=== PATIENT | female | born 1955 | race Caucasian/White ===

== ENCOUNTER → 2018-10-25 | Outpatient (CLI) | payer OTHER ==
[2018-10-25 12:03] LABS: Anion Gap 4 mmol/L (6-16); Blood Urea Nitrogen 21 mg/dL (8-24); Bun/Creatinine Ratio 36.3 (12.0-20.0); CO2, Blood 44 mmol/L (21-32); Chloride, Blood 92 mmol/L (98-108); Creatinine, Blood 0.58 mg/dL (0.40-1.00); Glomerular Filtration Rate >60 (60-); Glucose, Blood 100 mg/dL (70-99); Potassium, Blood 3.6 mmol/L (3.5-5.5); Sodium, Blood 140 mmol/L (136-145)
== END | disposition home or self-care (01) ==
LOC: LAB RH 11:41 → EDSTATUS 14:36
DX: J96.11 Chronic respiratory failure with hypoxia (principal)
CPT/HCPCS: 80048

== ENCOUNTER → 2018-10-27 | Outpatient (CLI) | payer OTHER ==
[2018-10-27 14:33] LABS: Anion Gap 3 mmol/L (6-16); Blood Urea Nitrogen 29 mg/dL (8-24); Bun/Creatinine Ratio 41.1 (12.0-20.0); CO2, Blood 40 mmol/L (21-32); Calcium, Blood 8.7 mg/dL (8.5-10.1); Chloride, Blood 95 mmol/L (98-108); Creatinine, Blood 0.71 mg/dL (0.40-1.00); Glomerular Filtration Rate >60 (60-); Glucose, Blood 113 mg/dL (70-99); Potassium, Blood 3.7 mmol/L (3.5-5.5); Sodium, Blood 138 mmol/L (136-145)
== END | disposition home or self-care (01) ==
LOC: LAB RH 14:12 → EDSTATUS 14:38
DX: J96.11 Chronic respiratory failure with hypoxia (principal)
CPT/HCPCS: 80048

== ENCOUNTER → 2019-01-23 | Outpatient (CLI) | payer OTHER | END | disposition home or self-care (01) | LOC: PLD 12:58 → LAB SHORT 12:58 | DX: B35.1 Tinea unguium (principal); L60.2 Onychogryphosis | CPT/HCPCS: 88305; 88312 ==

== ENCOUNTER 2019-06-21 18:39 | Emergency (ER) | payer MEDICARE, OTHER ==
[~2019-06-21] VITALS: Ht 177.8 cm; Wt 59.0 kg
[2019-06-21] MEDS ORDERED: Aspir 8181 MG PO (18:53)
[2019-06-21] MEDS ORDERED: FAMO40 PO (18:53)
[2019-06-21] MEDS ORDERED: THERA-D2000 UNIT PO (18:53)
[2019-06-21] MEDS ORDERED: FURO20 PO (18:54)
[2019-06-21] MEDS ORDERED: ACET325 PO (18:54)
[2019-06-21] MEDS ORDERED: MILK OF MA400 MG/5 M PO (18:55)
== END 2019-06-21 20:54 | disposition home or self-care (01) ==
LOC: ER 18:39
DX: M79.18 Myalgia, other site (principal); K59.00 Constipation, unspecified; J44.9 Chronic obstructive pulmonary disease, unspecified; I50.9 Heart failure, unspecified; Z87.891 Personal history of nicotine dependence; Z79.82 Long term (current) use of aspirin; Z88.0 Allergy status to penicillin; Z79.899 Other long term (current) drug therapy
CPT/HCPCS: 72170; 96372; 99283-25; J1885

== ENCOUNTER → 2021-05-01 | Outpatient (CLI) | payer OTHER ==
[~2021-05-01] MED LIST: ACET325 PO; Aspir 8181 MG PO; FAMO40 PO; FURO20 PO; MILK OF MA400 MG/5 M PO; THERA-D2000 UNIT PO
[2021-05-01 13:44] LABS: BASOPHILS ABSOLUTE AUTO 0.05 K/mm3 (0.00-0.23); BASOPHILS PERCENT AUTO 1 % (0-2); EOSINOPHILS ABSOLUTE AUTO 0.07 K/mm3 (0.00-0.68); EOSINOPHILS PERCENT AUTO 1 % (0-6); Hematocrit 44.9 % (33.0-51.0); IMMATURE GRAN ABSOLUTE AUTO 0.02 K/mm3 (0.00-0.10); IMMATURE GRAN PERCENT AUTO 0 % (0-1); LYMPHOCYTES ABSOLUTE AUTO 1.28 K/mm3 (0.84-5.20); LYMPHOCYTES PERCENT AUTO 14 % (21-46); MONOCYTES ABSOLUTE AUTO 0.77 K/mm3 (0.16-1.47); MONOCYTES PERCENT AUTO 9 % (4-13); Mean Corpuscular HGB 30.2 pg (26.0-34.0); Mean Corpuscular HGB Conc 31.2 g/dL (31.5-36.5); Mean Corpuscular Volume 97 fL (80-100); Mean Platelet Volume 10.4 fL (9.1-12.4); NEUTROPHILS ABSOLUTE AUTO 6.77 K/mm3 (1.96-9.15); NEUTROPHILS PERCENT AUTO 76 % (41-73); Platelet Count 250 K/mm3 (150-400); RDW Coefficient Variation 11.9 % (11.7-14.2); RDW Standard Deviation 42.6 fL (35.1-46.3); Red Blood Cell Count 4.64 M/mm3 (3.80-5.20); White Blood Cell Count 8.96 K/mm3 (4.00-11.30)
[2021-05-01 14:00] LABS: Alanine Aminotransfer (ALT/SGP 24 U/L (12-78); Albumin, Blood 4.2 g/dL (3.4-5.0); Albumin/Globulin Ratio 1.1 (0.8-1.8); Alk Phos 73 U/L (40-126); Anion Gap 1 mmol/L (6-16); Aspartate Aminotrans (AST/SGOT 20 U/L (12-37); Bilirubin, Total 0.3 mg/dL (0.1-1.0); Blood Urea Nitrogen 20 mg/dL (8-24); Bun/Creatinine Ratio 22.7 (12.0-20.0); CO2, Blood 44 mmol/L (21-32); Calcium, Blood 9.7 mg/dL (8.5-10.1); Chloride, Blood 99 mmol/L (98-108); Creatinine, Blood 0.88 mg/dL (0.40-1.00); Globulin, Blood 3.9 g/dL (2.2-4.0); Glomerular Filtration Rate >60 (60-); Glucose, Blood 95 mg/dL (70-99); Potassium, Blood 3.8 mmol/L (3.5-5.5); Sodium, Blood 144 mmol/L (136-145); Thyroid Stimulating Hormone 0.728 uIU/mL (0.360-4.800); Total Protein, Blood 8.1 g/dL (6.4-8.2)
== END ==
LOC: LAB SHORT 13:35
PROVIDERS: Family Medicine
DX: R00.2 Palpitations (principal); R35.81 Nocturnal polyuria
CPT/HCPCS: 80053; 83880; 84443; 85025; 87086

== ENCOUNTER 2021-05-05 09:43 | Emergency (ER) | payer OTHER ==
[~2021-05-05] VITALS: Ht 167.6 cm; Wt 63.5 kg
[2021-05-05] MEDS ORDERED: MULVITA PO (10:42)
[2021-05-05] MEDS ORDERED: ASPI81CH PO (10:42)
[2021-05-05] MEDS ORDERED: THERA-D2000 UNIT PO (10:42)
[2021-05-05] MEDS ORDERED: FAMO20 PO (10:42)
[2021-05-05] MEDS ORDERED: FURO20 PO (10:42)
[2021-05-05] MEDS ORDERED: BUDESONIDE0.5 MG/2 M INH (10:43)
[2021-05-05] MEDS ORDERED: POLY500 PO (10:43)
[2021-05-05] MEDS ORDERED: DOCU100 PO (10:43)
[2021-05-05] MEDS ORDERED: ZYRTEC10 M1 PO (10:43)
[2021-05-05] MEDS ORDERED: EZET10 PO (10:45)
[2021-05-05] MEDS ORDERED: ELIQUIS2.5 MG PO (10:45)
[2021-05-05] MEDS ORDERED: LISI5 PO (10:45)
[2021-05-05] MEDS ORDERED: IPRATROPIUM BRO30 ML (10:45)
[2021-05-05 10:50] LABS: Prothrombin Time Results 10.5 Sec (9.7-11.5)
[2021-05-05 11:10] LABS: BASOPHILS ABSOLUTE AUTO 0.04 K/mm3 (0.00-0.23); BASOPHILS PERCENT AUTO 1 % (0-2); EOSINOPHILS ABSOLUTE AUTO 0.06 K/mm3 (0.00-0.68); EOSINOPHILS PERCENT AUTO 1 % (0-6); Hematocrit 41.9 % (33.0-51.0); Hemoglobin 12.8 g/dL (11.5-16.0); IMMATURE GRAN ABSOLUTE AUTO 0.02 K/mm3 (0.00-0.10); IMMATURE GRAN PERCENT AUTO 0 % (0-1); LYMPHOCYTES ABSOLUTE AUTO 1.16 K/mm3 (0.84-5.20); LYMPHOCYTES PERCENT AUTO 15 % (21-46); MONOCYTES PERCENT AUTO 9 % (4-13); Mean Corpuscular HGB 30.2 pg (26.0-34.0); Mean Corpuscular HGB Conc 30.5 g/dL (31.5-36.5); Mean Corpuscular Volume 99 fL (80-100); Mean Platelet Volume 10.1 fL (9.1-12.4); NEUTROPHILS ABSOLUTE AUTO 6.03 K/mm3 (1.96-9.15); NEUTROPHILS PERCENT AUTO 75 % (41-73); Platelet Count 249 K/mm3 (150-400); RDW Coefficient Variation 11.9 % (11.7-14.2); RDW Standard Deviation 43.4 fL (35.1-46.3); Red Blood Cell Count 4.24 M/mm3 (3.80-5.20); White Blood Cell Count 8.01 K/mm3 (4.00-11.30)
[2021-05-05 11:32] LABS: Alanine Aminotransfer (ALT/SGP 20 U/L (12-78); Albumin, Blood 3.6 g/dL (3.4-5.0); Albumin/Globulin Ratio 1.2 (0.8-1.8); Alk Phos 59 U/L (50-136); Aspartate Aminotrans (AST/SGOT 19 U/L (12-37); Bilirubin, Total 0.3 mg/dL (0.1-1.0); Blood Urea Nitrogen 18 mg/dL (8-24); Calcium, Blood 9.3 mg/dL (8.5-10.1); Chloride, Blood 94 mmol/L (98-108); Creatinine, Blood 0.78 mg/dL (0.40-1.00); Globulin, Blood 3.1 g/dL (2.2-4.0); Glomerular Filtration Rate >60 (60-); Glucose, Blood 112 mg/dL (70-99); Potassium, Blood 4.2 mmol/L (3.5-5.5); Sodium, Blood 144 mmol/L (136-145); Total Protein, Blood 6.7 g/dL (6.4-8.2); Troponin I <0.015 ng/mL (0.000-0.040)
[2021-05-05 11:36] LABS: Anion Gap Unable to Calculate mmol/L (6-16)
[2021-05-05 11:37] LABS: CO2, Blood >45 mmol/L (21-32)
[2021-05-05 12:09] LABS: PO2 Arterial 72.5 mmHg (80-100); pH Blood Arterial 7.35 (7.35-7.45)
[2021-05-05 12:10] LABS: PCO2 Arterial 91 mmHg (35-45)
[2021-05-05 13:31] LABS: Influenza A, PCR NEGATIVE (NEGATIVE); Influenza B, PCR NEGATIVE (NEGATIVE); Resp Syncytial Virus, PCR NEGATIVE (NEGATIVE); SARS-Cov-2 (COVID-19) PCR, MMC NEGATIVE (NEGATIVE)
== END 2021-05-05 16:52 | disposition short-term general hospital (02) ==
LOC: ER 09:43
PROVIDERS: Emergency Medicine
DX: G91.9 Hydrocephalus, unspecified (principal); R06.89 Other abnormalities of breathing; J44.9 Chronic obstructive pulmonary disease, unspecified; I48.91 Unspecified atrial fibrillation; I50.9 Heart failure, unspecified; Z87.891 Personal history of nicotine dependence; Z79.899 Other long term (current) drug therapy; Z79.82 Long term (current) use of aspirin; Z79.01 Long term (current) use of anticoagulants
CPT/HCPCS: 0241U; 36415; 36600; 70450; 71045; 80053; 82803; 84484; 85025; 85610; 85730; 93005; 93010; 99285-25

== ENCOUNTER → 2021-07-23 | Outpatient (CLI) | payer OTHER ==
[~2021-07-23] MED LIST changes: +ASPI81CH PO; +BUDESONIDE0.5 MG/2 M INH; +DOCU100 PO; +ELIQUIS2.5 MG PO; +EZET10 PO; +FAMO20 PO; +IPRATROPIUM BRO30 ML; +LISI5 PO; +MULVITA PO; +POLY500 PO; +ZYRTEC10 M1 PO
[2021-07-23 13:59] LABS: Bilirubin, Urine Neg (Neg); Blood, Urine 1+ (Neg); Glucose Qualitative, Urine Neg (Neg); Ketones, Urine Neg (Neg); Leukocyte Esterase, Urine Neg (Neg); Nitrite, Urine Neg (Neg); Protein, Urine 2+ (Neg); Specific Gravity, Urine 1.015 (1.003-1.022); Urobilinogen, Urine NORM (Normal)
[2021-07-23 14:12] LABS: Appearance, Urine Hazy (Clear); Bacteria Many /hpf; Color, Urine Pale Yellow (P-Yellow); Squamous Epithelial Cells Few /hpf (Few); White Blood Cells, Urine 0-2 /hpf (0-5)
[2021-07-23 14:13] LABS: Amorphous Light (0-Heavy); Granular Casts 0-2 /lpf (0); Hyaline Casts 0-2 /lpf (0-2); Yeast/Fungi Urine Rare /hpf
== END ==
LOC: LAB SHORT 13:10
PROVIDERS: Nurse Practitioner Family
DX: M62.81 Muscle weakness (generalized) (principal); I95.9 Hypotension, unspecified; R82.998 Other abnormal findings in urine; Z79.82 Long term (current) use of aspirin
CPT/HCPCS: 81001

== ENCOUNTER 2023-04-29 14:33 | Emergency (ER) | payer OTHER ==
[~2023-04-29] VITALS: Ht 177.8 cm; Wt 68.0 kg
[2023-04-29 15:18] VITALS: BP 137/86
== END 2023-04-29 15:57 | disposition home or self-care (01) ==
LOC: ER 14:33
DX: Z76.0 Encounter for issue of repeat prescription (principal); I50.9 Heart failure, unspecified; J44.9 Chronic obstructive pulmonary disease, unspecified; Z99.81 Dependence on supplemental oxygen; Z87.891 Personal history of nicotine dependence; Z79.82 Long term (current) use of aspirin; Z79.01 Long term (current) use of anticoagulants; Z79.899 Other long term (current) drug therapy
CPT/HCPCS: 99281

== ENCOUNTER 2023-05-04 19:59 | Emergency (ER) | payer OTHER ==
[~2023-05-04] VITALS: Ht 177.8 cm; Wt 68.0 kg
[2023-05-04] MEDS ORDERED: GABA100 (20:18)
[2023-05-04] MEDS ORDERED: METOPROLOL TART25 MG (20:18)
[2023-05-04] MEDS ORDERED: morphine concentrate (20:19)
[2023-05-04 20:31] LABS: BASOPHILS ABSOLUTE AUTO 0.07 K/mm3 (0.00-0.23); BASOPHILS PERCENT AUTO 1 % (0-2); EOSINOPHILS ABSOLUTE AUTO 0.12 K/mm3 (0.00-0.68); EOSINOPHILS PERCENT AUTO 2 % (0-6); Hematocrit 45.8 % (33.0-51.0); Hemoglobin 14.1 g/dL (11.5-16.0); IMMATURE GRAN ABSOLUTE AUTO 0.01 K/mm3 (0.00-0.10); IMMATURE GRAN PERCENT AUTO 0 % (0-1); LYMPHOCYTES ABSOLUTE AUTO 1.13 K/mm3 (0.84-5.20); LYMPHOCYTES PERCENT AUTO 16 % (21-46); MONOCYTES ABSOLUTE AUTO 0.84 K/mm3 (0.16-1.47); MONOCYTES PERCENT AUTO 12 % (4-13); Mean Corpuscular HGB 30.7 pg (26.0-34.0); Mean Corpuscular HGB Conc 30.8 g/dL (31.5-36.5); Mean Corpuscular Volume 100 fL (80-100); NEUTROPHILS ABSOLUTE AUTO 4.89 K/mm3 (1.96-9.15); NEUTROPHILS PERCENT AUTO 69 % (41-73); Platelet Count 251 K/mm3 (150-400); RDW Coefficient Variation 12.1 % (11.7-14.2); RDW Standard Deviation 44.1 fL (35.1-46.3); White Blood Cell Count 7.06 K/mm3 (4.00-11.30)
[2023-05-04 21:01] LABS: Albumin, Blood 3.7 g/dL (3.4-5.0); Bilirubin, Total 0.3 mg/dL (0.1-1.0); Bun/Creatinine Ratio 27.8 (12.0-20.0); Calcium, Blood 9.2 mg/dL (8.5-10.1); Creatinine, Blood 0.65 mg/dL (0.40-1.00); Globulin, Blood 3.6 g/dL (2.2-4.0); Potassium, Blood 4.4 mmol/L (3.5-5.5); Total Protein, Blood 7.3 g/dL (6.4-8.2)
[2023-05-04 22:06] LABS: Adenovirus Not Detected (NOT DETECT); Bordetella pertussis Not Detected (NOT DETECT); Chlamydophila pneumoniae Not Detected (NOT DETECT); Coronavirus 229E Not Detected (NOT DETECT); Coronavirus HKU1 Not Detected (NOT DETECT); Coronavirus NL63 Not Detected (NOT DETECT); Coronavirus OC43 Not Detected (NOT DETECT); Human Metapneumovirus Not Detected (NOT DETECT); Human Rhinovirus/Enterovirus Not Detected (NOT DETECT); Influenza A/2009-H1 Not Detected (NOT DETECT); Influenza A/H1 Not Detected (NOT DETECT); Influenza A/H3 Not Detected (NOT DETECT); Influenza B Not Detected (NOT DETECT); Mycoplasma pneumoniae Not Detected (NOT DETECT); Parainfluenza Virus 1 Not Detected (NOT DETECT); Parainfluenza Virus 2 Not Detected (NOT DETECT); Parainfluenza Virus 3 Not Detected (NOT DETECT); Parainfluenza Virus 4 Not Detected (NOT DETECT); Respiratory Syncytial Virus Not Detected (NOT DETECT); SARS-Cov-2 (COVID-19), BioFire Not Detected (NOT DETECT)
[2023-05-05] MEDS ORDERED: ONDA4ODT MM (01:29)
[2023-05-05] MEDS ORDERED: Lopressor 25 mg25 MG PO (01:29)
[2023-05-05] MEDS ORDERED: Neurontin 100100 MG PO (01:29)
[2023-05-05] MEDS ORDERED: BUDESONIDE0.5 MG/2 M INH (01:29)
[2023-05-05 02:45] VITALS: BP 129/73
[2023-05-05] MEDS ORDERED: Prednisone20 MG PO (23:24)
== END 2023-05-05 04:19 | disposition home or self-care (01) ==
LOC: ER 19:59
PROVIDERS: Emergency Medicine
DX: J44.1 Chronic obstructive pulmonary disease with (acute) exacerbation (principal); R11.2 Nausea with vomiting, unspecified; Z76.0 Encounter for issue of repeat prescription; Z20.822 Contact with and (suspected) exposure to COVID-19; I50.9 Heart failure, unspecified; Z79.51 Long term (current) use of inhaled steroids; Z79.01 Long term (current) use of anticoagulants; Z79.82 Long term (current) use of aspirin; Z79.891 Long term (current) use of opiate analgesic; Z79.899 Other long term (current) drug therapy; Z88.0 Allergy status to penicillin
CPT/HCPCS: 0202U; 36415; 71046; 71260; 80053; 83605; 83735; 83880; 84145; 84484; 85025; 93005; 93010; 96374; 96375; 99285-25; J2405; J2765; Q9967

== ENCOUNTER 2023-05-05 18:32 | Emergency (ER) | payer OTHER ==
[~2023-05-05] VITALS: Ht 177.8 cm; Wt 68.0 kg
[~2023-05-05 18:32] MED LIST changes: +GABA100; +Lopressor 25 mg25 MG PO; +METOPROLOL TART25 MG; +Neurontin 100100 MG PO; +ONDA4ODT MM; +morphine concentrate
[2023-05-05 18:54] LABS: BASOPHILS ABSOLUTE AUTO 0.04 K/mm3 (0.00-0.23); BASOPHILS PERCENT AUTO 1 % (0-2); EOSINOPHILS ABSOLUTE AUTO 0.01 K/mm3 (0.00-0.68); EOSINOPHILS PERCENT AUTO 0 % (0-6); Hematocrit 44.3 % (33.0-51.0); Hemoglobin 13.7 g/dL (11.5-16.0); IMMATURE GRAN ABSOLUTE AUTO 0.01 K/mm3 (0.00-0.10); IMMATURE GRAN PERCENT AUTO 0 % (0-1); LYMPHOCYTES ABSOLUTE AUTO 0.94 K/mm3 (0.84-5.20); LYMPHOCYTES PERCENT AUTO 13 % (21-46); MONOCYTES ABSOLUTE AUTO 0.86 K/mm3 (0.16-1.47); MONOCYTES PERCENT AUTO 12 % (4-13); Mean Corpuscular HGB 31.1 pg (26.0-34.0); Mean Corpuscular HGB Conc 30.9 g/dL (31.5-36.5); Mean Corpuscular Volume 101 fL (80-100); NEUTROPHILS ABSOLUTE AUTO 5.15 K/mm3 (1.96-9.15); NEUTROPHILS PERCENT AUTO 74 % (41-73); Platelet Count 234 K/mm3 (150-400); RDW Coefficient Variation 11.9 % (11.7-14.2); RDW Standard Deviation 44.1 fL (35.1-46.3); Red Blood Cell Count 4.41 M/mm3 (3.80-5.20); White Blood Cell Count 7.01 K/mm3 (4.00-11.30)
[2023-05-05 19:19] LABS: Albumin, Blood 3.7 g/dL (3.4-5.0); Bilirubin, Total 0.4 mg/dL (0.1-1.0); Bun/Creatinine Ratio 32.7 (12.0-20.0); Calcium, Blood 9.3 mg/dL (8.5-10.1); Creatinine, Blood 0.64 mg/dL (0.40-1.00); Globulin, Blood 3.6 g/dL (2.2-4.0); Potassium, Blood 4.6 mmol/L (3.5-5.5); Total Protein, Blood 7.3 g/dL (6.4-8.2)
[2023-05-05] MEDS ORDERED: Prednisone20 MG PO (23:24)
[2023-05-06] VITALS: BP 115/85
[2023-05-07] MEDS ORDERED: IPRAT-ALBUT 0.5-3 ML INH (16:35)
== END 2023-05-06 00:17 | disposition home or self-care (01) ==
LOC: ER 18:32
PROVIDERS: Emergency Medicine
DX: J44.9 Chronic obstructive pulmonary disease, unspecified (principal); I50.9 Heart failure, unspecified; Z88.0 Allergy status to penicillin; Z79.899 Other long term (current) drug therapy; Z79.01 Long term (current) use of anticoagulants; Z79.82 Long term (current) use of aspirin
CPT/HCPCS: 80053; 83880; 84484; 85025; 93005; 93010; 94640; 94644; 94664; 96360; 96361; 99285-25; A9270; J2930; J7030

== ENCOUNTER 2023-05-07 10:03 | Inpatient (IN) | payer OTHER ==
[~2023-05-07] VITALS: Ht 177.8 cm; Wt 65.3 kg
[~2023-05-07 10:03] MED LIST changes: +Prednisone20 MG PO
[2023-05-07 10:57] LABS: Base Excess Venous 16.6 mmol/L; Bicarbonate Venous 33.6 mmol/L (24.0-30.0); pH Blood Venous 7.22 (7.34-7.37)
[2023-05-07 11:00] LABS: PCO2 Venous > 104 mmHg (38-42)
[2023-05-07 12:02] LABS: BASOPHILS ABSOLUTE AUTO 0.08 K/mm3 (0.00-0.23); BASOPHILS PERCENT AUTO 1 % (0-2); EOSINOPHILS ABSOLUTE AUTO 0.05 K/mm3 (0.00-0.68); EOSINOPHILS PERCENT AUTO 1 % (0-6); Hematocrit 44.8 % (33.0-51.0); Hemoglobin 13.7 g/dL (11.5-16.0); IMMATURE GRAN ABSOLUTE AUTO 0.01 K/mm3 (0.00-0.10); IMMATURE GRAN PERCENT AUTO 0 % (0-1); LYMPHOCYTES ABSOLUTE AUTO 0.75 K/mm3 (0.84-5.20); LYMPHOCYTES PERCENT AUTO 8 % (21-46); MONOCYTES ABSOLUTE AUTO 0.45 K/mm3 (0.16-1.47); MONOCYTES PERCENT AUTO 5 % (4-13); Mean Corpuscular HGB 30.7 pg (26.0-34.0); Mean Corpuscular HGB Conc 30.6 g/dL (31.5-36.5); Mean Corpuscular Volume 100 fL (80-100); Mean Platelet Volume 10.9 fL (9.1-12.4); NEUTROPHILS ABSOLUTE AUTO 8.69 K/mm3 (1.96-9.15); NEUTROPHILS PERCENT AUTO 87 % (41-73); Platelet Count 229 K/mm3 (150-400); RDW Coefficient Variation 12.2 % (11.7-14.2); RDW Standard Deviation 45.2 fL (35.1-46.3); Red Blood Cell Count 4.46 M/mm3 (3.80-5.20); White Blood Cell Count 10.03 K/mm3 (4.00-11.30)
[2023-05-07 13:33] LABS: Albumin, Blood 3.4 g/dL (3.4-5.0); Bilirubin, Total 0.4 mg/dL (0.1-1.0); Calcium, Blood 8.8 mg/dL (8.5-10.1); Creatinine, Blood 0.6 mg/dL (0.40-1.00); Globulin, Blood 3.4 g/dL (2.2-4.0); Potassium, Blood 5.4 mmol/L (3.5-5.5); Total Protein, Blood 6.8 g/dL (6.4-8.2)
[2023-05-07 13:47] VITALS: BP 120/63
[2023-05-07 13:55] LABS: Influenza A, PCR NEGATIVE (NEGATIVE); Influenza B, PCR NEGATIVE (NEGATIVE); Resp Syncytial Virus, PCR NEGATIVE (NEGATIVE)
[2023-05-07 14:38] LABS: SARS-Cov-2 (COVID-19) PCR, MMC POSITIVE (NEGATIVE)
[2023-05-07] MEDS ORDERED: IPRAT-ALBUT 0.5-3 ML INH (16:35)
[2023-05-07 17:12] VITALS: BP 127/72
--- NOTE | 2023-05-07 18:26 | NUR ---
ADMIT NOTE Received report from ED, pt to room via gurney, 4 person transfer with slider sheet. Spo2 >90% on bipap 16/7 55%, titrated down to 40%, breaks on 15 via oxymizer, ls dim and tight, pt receiving neb. Pt COVID positive, started on remdesivir, decadron, and olumiant. Pt reporting back pain, medicated with tylenol and repositioned. Pt denies chest pain/pressure, nausea, dizziness and numb/tingling. Tele sinus with pac's, bp wnl. Abd soft nontender, +bt t/o, last bm 05/06/23. No edema noted. Other vss. Pt takes medications with water. Will continues to monitor. Pt living at [facility], not assisted living, pt has caregiver a few hours per day. Pt states she does not use a walking in them apartment, but will use if she leaves her apartement. [facility], states someone was able to cotton picker her mediations today.
[2023-05-07 20:46] VITALS: BP 139/80
[2023-05-08 01:24] VITALS: BP 133/80
[2023-05-08 03:26] LABS: Base Excess Venous 18.7 mmol/L; Bicarbonate Venous 39.9 mmol/L (24.0-30.0); pH Blood Venous 7.46 (7.34-7.37)
[2023-05-08 03:41] LABS: BASOPHILS PERCENT AUTO 0 % (0-2); EOSINOPHILS PERCENT AUTO 0 % (0-6); Hematocrit 39.5 % (33.0-51.0); Hemoglobin 12.2 g/dL (11.5-16.0); IMMATURE GRAN PERCENT AUTO 0 % (0-1); LYMPHOCYTES ABSOLUTE AUTO 0.74 K/mm3 (0.84-5.20); LYMPHOCYTES PERCENT AUTO 30 % (21-46); MONOCYTES PERCENT AUTO 16 % (4-13); Mean Corpuscular HGB 30.2 pg (26.0-34.0); Mean Corpuscular HGB Conc 30.9 g/dL (31.5-36.5); Mean Corpuscular Volume 98 fL (80-100); Mean Platelet Volume 10.2 fL (9.1-12.4); NEUTROPHILS ABSOLUTE AUTO 1.33 K/mm3 (1.96-9.15); NEUTROPHILS PERCENT AUTO 54 % (41-73); Platelet Count 215 K/mm3 (150-400); RDW Coefficient Variation 11.9 % (11.7-14.2); RDW Standard Deviation 42.9 fL (35.1-46.3); Red Blood Cell Count 4.04 M/mm3 (3.80-5.20); White Blood Cell Count 2.47 K/mm3 (4.00-11.30)
[2023-05-08 03:59] LABS: Bun/Creatinine Ratio 49.6 (12.0-20.0); Calcium, Blood 8.4 mg/dL (8.5-10.1); Creatinine, Blood 0.57 mg/dL (0.40-1.00); Potassium, Blood 4.8 mmol/L (3.5-5.5)
--- NOTE | 2023-05-08 04:16 | NUR ---
SHIFT SUMMARY. PT HAS BEEN DOING WELL THIS SHIFT. AOX4, COOPERATIVE WITH CARE. SOMEWHAT ANXIOUS ABOUT HAVING TO WEAR THE BIPAP BUT OVERALL TOLERATING IT WELL. SATURATIONS HAVE MAINTAINED ABOVE 92% ON BIPAP ALL NIGHT, ABLE TO TOLERATE BRIEF BREAKS FROM BIPAP TO DRINK WATER WITHOUT DESATTING BELOW 90%. HAS ONLY TAKEN FEW VERY BRIEF BREAKS OVERNIGHT. NO PAIN REPORTED. PT HAS BEEN ABLE TO SLEEP THROUGH MOST OF SHIFT. INCONTINENT. CALLS APPROPRIATELY FOR ASSISTANCE. BED LOCKED IN LOWEST POSITION. CALL LIGHT LEFT WITHIN REACH.
[2023-05-08 04:48] VITALS: BP 111/68
--- NOTE | 2023-05-08 06:18 | NUR ---
5 BEAT RUN OF VTA AT 0610. NOTIFIED HE GILL. NO NEED FOR ACTION AT THIS TIME. PT CONDITION UNCHANGED, SLEEPING. CONVERTED RIGHT BACK TO SR. CONTINUING TO MONITOR.
--- NOTE | 2023-05-08 07:11 | NUR ---
Report received from MAYITO Sen.
[2023-05-08 07:51] VITALS: BP 129/81
--- NOTE | 2023-05-08 07:52 | NUR ---
RT Posada finished working with pt. She appears to be asleep, wearing bipap at this time. Sinus rhythm 83 bpm with frequent PACs noted by bedside telemetry. Blood pressure stable.
--- NOTE | 2023-05-08 08:20 | NUR ---
SWITCHED from BIPAP to oxymizer, o2 delivery at 3 l/min and spo2 91%. She is having clear liquid breakfast and tolerating it well.
[2023-05-08 12:20] VITALS: BP 126/89
--- NOTE | 2023-05-08 13:59 | NUR ---
Assist up to bedside commode to void. She had not voided since before the start of day shift. Bladder scan showed 334 cc. she was able to void 200 cc.
[2023-05-08 17:23] VITALS: BP 127/81
--- NOTE | 2023-05-08 17:26 | NUR ---
SPO2 88 % ON 4 L/MIN OF 02. INCREASED DELIVERY TO 5 L/MIN, SPO2 UP TO 91-92%. RR 12/MINUTE. PT STATES SHE IS FEELING MUCH BETTER.
--- NOTE | 2023-05-08 18:15 | NUR ---
Assisted to bedside commode to change her attends after urinary incontinence. She is now sitting on the side of the bed, eating regular diet for dinner. She is needing 6 l/min of oxygen during the activity, but tolerated it very well. Appetite is fair.
[2023-05-08 19:56] VITALS: BP 144/105
--- NOTE | 2023-05-08 22:45 | NUR ---
PT HAS BEEN ON NC ALL DAY PER REPORT, SATTING WELL WITH EXCEPTION OF NEEDING INCREASED O2 WHEN PARTICULARLY ACTIVE. HAS BEEN SATTING WELL AT 6 L O2 VIA NC SINCE SHIFT CHANGE. APPLIED BIPAP MASK WHEN PT WAS READY TO GO TO SLEEP. PT UNABLE TO TOLERATE. EDUCATED ON NEED FOR CONTINUED BIPAP USE, SPOKE WITH RESIDENT DR. Anderson WHO ORDERED ONE TIME DOSE OF 0.5 MG PO ATIVAN. ADMINISTERED AND REAPPLIED BIPAP. PT WAS ABLE TO TOLERATE FOR ~40 MINUTES BEFORE BECOMING MORE AGITATED AND VOICING THAT SHE WONT WEAR BIPAP. APPLIED NC AND PT IS NOW SATTING >90%. CONTINUING TO MONITOR.
[2023-05-09] VITALS (8 sets, daily range): BP systolic 129–150; BP diastolic 79–94
--- NOTE | 2023-05-09 02:11 | NUR ---
NOTIFIED BY TELE. PT HAD 5 BEAT RUN OF VTACH AT ~0130. SAME AMOUNT OF BEATS PREVIOUS SHIFT WITH THIS NURSE. NO CHANGE IN PT CONDITION, VITALS REMAIN STABLE. CONTINUING TO MONITOR.
[2023-05-09 03:52] LABS: BASOPHILS ABSOLUTE AUTO 0.01 K/mm3 (0.00-0.23); BASOPHILS PERCENT AUTO 0 % (0-2); EOSINOPHILS ABSOLUTE AUTO 0.01 K/mm3 (0.00-0.68); EOSINOPHILS PERCENT AUTO 0 % (0-6); Hematocrit 41.6 % (33.0-51.0); Hemoglobin 13.2 g/dL (11.5-16.0); IMMATURE GRAN ABSOLUTE AUTO 0.01 K/mm3 (0.00-0.10); IMMATURE GRAN PERCENT AUTO 0 % (0-1); LYMPHOCYTES ABSOLUTE AUTO 1.65 K/mm3 (0.84-5.20); LYMPHOCYTES PERCENT AUTO 28 % (21-46); MONOCYTES ABSOLUTE AUTO 0.93 K/mm3 (0.16-1.47); MONOCYTES PERCENT AUTO 16 % (4-13); Mean Corpuscular HGB 30.4 pg (26.0-34.0); Mean Corpuscular HGB Conc 31.7 g/dL (31.5-36.5); Mean Corpuscular Volume 96 fL (80-100); Mean Platelet Volume 10.5 fL (9.1-12.4); NEUTROPHILS ABSOLUTE AUTO 3.31 K/mm3 (1.96-9.15); NEUTROPHILS PERCENT AUTO 56 % (41-73); Platelet Count 233 K/mm3 (150-400); RDW Coefficient Variation 11.9 % (11.7-14.2); RDW Standard Deviation 42.2 fL (35.1-46.3); Red Blood Cell Count 4.34 M/mm3 (3.80-5.20); White Blood Cell Count 5.92 K/mm3 (4.00-11.30)
--- NOTE | 2023-05-09 04:22 | NUR ---
SHIFT SUMMARY. PT HAS BEEN OFF OF BIPAP THROUGHOUT MOST OF SHIFT, SEE RELATED NOTE FOR EXPANDED DETAILS. DESPITE BEING OFF OF BIPAP, PT HAS BEEN MAINTAINING SATS >90% WHILE WEARING NC. ON SHIFT ASSESSMENT, PT WAS AOX3-4 REQUIRING SOME REORIENTATION BUT WITH CONCRETE THOUGHT PROCESS AND ABLE TO ANSWER MOST QUESTIONS APPROPRIATELY. FORGETFUL, USES PEN AND PAPER AT BEDSIDE TO WRITE DOWN INSTRUCTIONS/EDUCATION/ETC TO REMEMBER. THROUGHOUT SHIFT, PT HAS SPORADICALLY WOKEN UP MORE CONFUSED AT TIMES PULLING OFF LINES AND DESATTING TO 70s DUE TO LACK OF SUPPLEMENTAL O2. REMAINS EASILY REORIENTED AND REDIRECTABLE BUT DOES WAKE SOMEWHAT CONFUSED. BED ALARM LEFT IN PLACE FOR SAFETY. EARLY THIS MORNING, PT HAD 5 BEAT RUN OF VTACH PER INVESTIGATIVE REPORTER. SEE RELATED NOTE FOR DETAILS. ASIDE FROM THIS, NO EVENTS THIS SHIFT THUS FAR ON TELE. NO PAIN REPORTED THIS SHIFT. HAS BEEN MOSTLY INCONTINENT THIS SHIFT. SPORADICALLY USES CALL LIGHT APPROPIATELY BUT NOT CONSISTENTLY. BED LOCKED IN LOWEST POSITION. CALL LIGHT LEFT WITHIN REACH. CONTINUING TO MONITOR.
--- NOTE | 2023-05-09 06:03 | NUR ---
NOTIFIED BY TELE. 5 BEATS OF V TACH AT 0600. PT CONDITION UNCHANGED. RESTING COMFORTABLY. DISCUSSED BRIEFLY WITH HE GILL RN. NO NEED FOR FURTHER ACTION AT THIS TIME. WILL PASS ONTO DAY SHIFT RN.
[2023-05-09 06:16] LABS: Bun/Creatinine Ratio 33.1 (12.0-20.0); Calcium, Blood 8.6 mg/dL (8.5-10.1); Creatinine, Blood 0.67 mg/dL (0.40-1.00)
--- NOTE | 2023-05-09 11:44 | NUR ---
Andrea supportive visit this AM. Pt resting in bed and is A&OX4. Pt denies pain, nausea, anxiety, and dyspnea. She reports breathing has improved. Pt resports living at [facility], not , one sister who lives local and many relatives that live in other areas. Continued therapeutic listening as Pt reports being hopeful to D/C home soon. Pt reports no concerns at this time. Palliative Care will remain available
--- NOTE | 2023-05-09 16:03 | NUR ---
Encouraged pt to get up to chair for dinner. She declined. Asking for more broth.
--- NOTE | 2023-05-09 16:53 | NUR ---
Very large incontinent void in attends. pt called to say that her attends were wet. Assisted to BSC but no further void. Spo2 83% on 4 l/min during activity. Sat in chair afterwards, oxygen increased to 6 l/min for recovery. Mild dyspnea was resolved shortly afterwards, spo2 90% now while sitting in chair waiting for dinner.
--- NOTE | 2023-05-09 21:45 | NUR ---
NOTIFICATION FROM [employer] FARH[facility]. PT HAD 5 BEAT RUN OF VTACH AT 0942. SAME NUMBER OF BEATS PREVIOUS 2 SHIFTS WITH THIS NURSE. VSS. PT ASLEEP THROUGH EVENT. CONTINUING TO MONITOR.
--- NOTE | 2023-05-09 22:52 | NUR ---
NOTIFIED BY TELE, PT HAD 12 BEAT RUN OF VTACH AT 2230. PT CONDITION UNCHANGED. SLEEPING AT TIME. UPON BEING WOKEN DENIED SOB/CHEST PAIN/PRESSURE/SOB/ETC. VSS STABLE. CALLED TO NOTIFY RESIDENT DR. Ilya CAR ORDERS AT THIS TIME. CONTINUING TO MONITOR.
[2023-05-10 03:48] VITALS: BP 156/86
--- NOTE | 2023-05-10 04:18 | NUR ---
SHIFT SUMMARY. PT HAS BEEN DOING WELL THIS SHIFT. AOX4, FORGETFUL BUT EASILY REORIENTED, PLEASANT, COOPERATIVE WITH CARE. LESS IMPULSIVE THAN PREVIOUS SHIFT WITH THIS NURSE. USES CALL LIGHT APPROPRIATELY AND HAS NOT ATTEMPTED OOB WITHOUT ASSISTANCE. BED ALARM REMAINS ACTIVE. PT HAS NOT WORN BIPAP TONIGHT SHE REPORTED BEFORE GOING TO SLEEP THAT SHE DID NOT WANT TO WEAR IT AND WOULD NOT TOLERATE IT. DESPITE THIS, PT HAS BEEN SATTING >90% ON 3 L O2 VIA NC ALL NIGHT WITH ONLY OCCASIONAL BRIEF DESATURATIONS INTO MID-HIGH 80s. NEED INCREASED SUPPLEMENTATION WITH TRANSFER OR MOVEMENT. NO PAIN REPORTED THIS SHIFT. HAS BEEN ABLE TO SLEEP THROUGHOUT MOST OF SHIFT. FREQUENT INCONTINENCE. TELE ACTIVE THROUGHOUT SHIFT RUNNING SINUS W/PACs. 12 BEAT RUN OF VTACH EARLY IN SHIFT. DR. Anderson MADE AWARE. SEE RELATED NOTE FOR DETAILS. CALL LIGHT LEFT WITHINR EACH. BED LOCKED IN LOWEST POSITION.
[2023-05-10 05:30] LABS: Hematocrit 43.5 % (33.0-51.0); Hemoglobin 13.8 g/dL (11.5-16.0); Mean Corpuscular HGB 30.4 pg (26.0-34.0); Mean Corpuscular HGB Conc 31.7 g/dL (31.5-36.5); Mean Corpuscular Volume 96 fL (80-100); Mean Platelet Volume 10.7 fL (9.1-12.4); Platelet Count 250 K/mm3 (150-400); RDW Coefficient Variation 11.9 % (11.7-14.2); RDW Standard Deviation 41.5 fL (35.1-46.3); Red Blood Cell Count 4.54 M/mm3 (3.80-5.20); White Blood Cell Count 6.78 K/mm3 (4.00-11.30)
--- NOTE | 2023-05-10 05:37 | NUR ---
AT ABOUT ~0625, PT HAD 15 BEAT RUN OF VTACH. PT REMAINS AYMPTOMATIC. CALLED DR. Anderson TO INFORM. DIRECTED TO ENSURE THAT DAY SHIFT BECOMES AWARE OF TREND SO THAT THEY CAN MAKE DR. SANDOVAL AWARE. SPECULATED ON NEED FOR POSSIBLE CARDIOLOGY CONSULT. WILL MAKE SURE TO INFORM DAY SHIFT RN. CONTINUING TO MONITOR.
[2023-05-10 05:59] LABS: Bun/Creatinine Ratio 29.6 (12.0-20.0); Calcium, Blood 8.5 mg/dL (8.5-10.1); Creatinine, Blood 0.57 mg/dL (0.40-1.00); Potassium, Blood 3.8 mmol/L (3.5-5.5)
[2023-05-10 07:30] VITALS: BP 120/101
[2023-05-10 12:05] VITALS: BP 113/82
[2023-05-10 15:55] VITALS: BP 138/92
[2023-05-10 20:49] VITALS: BP 134/95
--- NOTE | 2023-05-10 21:42 | NUR ---
ASSUMED PT CARE FROM RN ON DAYSHIFT. A&OX4 BUT FORGETFUL AT TIME. DENIES ANY CHEST PAIN AT THIS TIME. HR IS SR WITH PAC'S. BP STABLE, SEE RECORDED VITAL SIGNS. AFEBRILE. REPORTS SOB THAT IS BASELINE FOR HER. O2 SATS > 90% ON 3-4 LPM VIA NC. DENIES NAUSEA. TAKES EVENING MEDICATIONS WITHOUT DIFFICULTY. CALL LIGHT IN REACH. BED IN LOW POSITION. BED ALARM ON.
[2023-05-11 00:14] VITALS: BP 134/91
[2023-05-11 05:00] LABS: Albumin, Blood 3.1 g/dL (3.4-5.0); Anion Gap 1 mmol/L (6-16); Blood Urea Nitrogen 21 mg/dL (8-24); Bun/Creatinine Ratio 30.4 (12.0-20.0); CO2, Blood 42 mmol/L (21-32); Calcium, Blood 8.3 mg/dL (8.5-10.1); Chloride, Blood 97 mmol/L (98-108); Creatinine, Blood 0.69 mg/dL (0.40-1.00); Glomerular Filtration Rate 94 (60-); Glucose, Blood 90 mg/dL (70-99); Magnesium, Blood 2.1 mg/dL (1.6-2.4); Phosphorus, Blood 3.9 mg/dL (2.5-4.9); Potassium, Blood 3.8 mmol/L (3.5-5.5); Sodium, Blood 140 mmol/L (136-145)
[2023-05-11 05:35] VITALS: BP 146/81
--- NOTE | 2023-05-11 06:00 | NUR ---
SHIFT SUMMARY: NO ACUTE CHANGES NOTED DURING THIS SHIFT. VITAL SIGNS STABLE. DECREASED O2 TO 2 LPM DUE TO SATS BEING HIGH 90'S. PUREWICK IN PLACE WITHOUT LEAKING. REPOSITIONS SELF FOR COMFORT. CALL LIGHT IN REACH. BED ALARM ON.
[2023-05-11 06:54] VITALS: BP 161/88
--- NOTE | 2023-05-11 07:00 | NUR ---
Received in room report from Aliyah EDMOND. Patient was awake , alert and oriented and is able to communicate her needs. She was on 5L O2 via NC at 99% and reduced to home level of 3L O2 via NC and sats >90%. She is independent in bed and SBA with ambnulation. She has 20ga IV to RW and is flushed and SL'd. She has purewick at night for incontinence. She is requesting orders for portable O2 mixer. Her plan is to return home today to [place].
--- NOTE | 2023-05-11 11:30 | NUR ---
Patient has been resting in bed. Her O2 has remainsed on home dose of 3L O2 via NC and sats >95%. Dr Stern by and is sending home . Spoke with career advisor and she has stuff to do. Patient requested portable O2 mixer and she is getting referrak to pulm. and needs to have them assess. She has been independent in room and calls for assist. She is sitting up eating lunch.
[2023-05-11 12:27] VITALS: BP 110/50
[2023-05-11] MEDS ORDERED: DECADRON6 M1 PO (12:32)
[2023-05-11] MEDS ORDERED: ELIQUIS5 M2 PO (12:32)
--- NOTE | 2023-05-11 13:23 | NUR ---
Patient has been discharge back to [facility], tried to call and no answer to let them know she was on her way back. IV pulled intact and site WNL's. She was placed on wheelchair O2 at 3L and self transferred to chair. She was wearing her house shirt and we gave her blue paper pants for ride home. [facility] medical delivery driver picked her up at 1305 and stated he would take her to her room . She was given written discharge orders and Care evgeny came by and we gave her paper work for all her out patient care. She had all her personnal belongings and we looked through room to be assure. patient denied any other current needs. I gave her a script for FWW.
== END 2023-05-11 14:25 | disposition home health service (06) | DRG 177 ==
LOC: ER 10:03 → PCU 12:12
PROVIDERS: Internal Medicine; Student in an Organized Health Care Education/Training Program; ADMIT Internal Medicine
PROC: 5A09357 Assistance with Respiratory Ventilation, Less than 24 Consecutive Hours, Continuous Positive Airway Pressure (ICD-10-PCS; principal; 2023-05-07)
PROC: XW033E5 Introduction of Remdesivir Anti-infective into Peripheral Vein, Percutaneous Approach, New Technology Group 5 (ICD-10-PCS; 2023-05-07)
PROC: 3E0DX3Z Introduction of Anti-inflammatory into Mouth and Pharynx, External Approach (ICD-10-PCS; 2023-05-07)
PROC: XW0DXM6 Introduction of Baricitinib into Mouth and Pharynx, External Approach, New Technology Group 6 (ICD-10-PCS; 2023-05-07)
PROC: 8E0ZXY6 Isolation (ICD-10-PCS; 2023-05-07)
DX: U07.1 COVID-19 (principal); J96.21 Acute and chronic respiratory failure with hypoxia; J96.22 Acute and chronic respiratory failure with hypercapnia; J44.1 Chronic obstructive pulmonary disease with (acute) exacerbation; I48.20 Chronic atrial fibrillation, unspecified; I47.20 Ventricular tachycardia, unspecified; I50.32 Chronic diastolic (congestive) heart failure; Z66 Do not resuscitate; I11.0 Hypertensive heart disease with heart failure; J43.9 Emphysema, unspecified; D70.9 Neutropenia, unspecified; Z88.0 Allergy status to penicillin; Z79.899 Other long term (current) drug therapy; Z79.82 Long term (current) use of aspirin; Z79.01 Long term (current) use of anticoagulants; Z99.81 Dependence on supplemental oxygen; Z87.891 Personal history of nicotine dependence
CPT/HCPCS: 0241U; 36415; 71045; 80048; 80053; 80069; 82803; 83735; 83880; 85025; 85027; 93005; 93010; 94640; 94660; 94664; 94760; 94762; 99285-25; A9270; C9399; J0248; J7050

== ENCOUNTER 2023-05-16 08:51 | Emergency (ER) | payer OTHER ==
[~2023-05-16] VITALS: Ht 177.8 cm; Wt 63.5 kg
[~2023-05-16 08:51] MED LIST changes: +DECADRON6 M1 PO; +ELIQUIS5 M2 PO; +IPRAT-ALBUT 0.5-3 ML INH
[2023-05-16 09:35] LABS: BASOPHILS ABSOLUTE AUTO 0.02 K/mm3 (0.00-0.23); BASOPHILS PERCENT AUTO 0 % (0-2); EOSINOPHILS ABSOLUTE AUTO 0.01 K/mm3 (0.00-0.68); EOSINOPHILS PERCENT AUTO 0 % (0-6); Hematocrit 45.6 % (33.0-51.0); Hemoglobin 13.8 g/dL (11.5-16.0); IMMATURE GRAN ABSOLUTE AUTO 0.01 K/mm3 (0.00-0.10); IMMATURE GRAN PERCENT AUTO 0 % (0-1); LYMPHOCYTES ABSOLUTE AUTO 1.06 K/mm3 (0.84-5.20); LYMPHOCYTES PERCENT AUTO 13 % (21-46); MONOCYTES ABSOLUTE AUTO 1.14 K/mm3 (0.16-1.47); MONOCYTES PERCENT AUTO 14 % (4-13); Mean Corpuscular HGB 30.3 pg (26.0-34.0); Mean Corpuscular HGB Conc 30.3 g/dL (31.5-36.5); Mean Corpuscular Volume 100 fL (80-100); Mean Platelet Volume 10.3 fL (9.1-12.4); NEUTROPHILS ABSOLUTE AUTO 5.68 K/mm3 (1.96-9.15); NEUTROPHILS PERCENT AUTO 72 % (41-73); Platelet Count 268 K/mm3 (150-400); RDW Coefficient Variation 11.9 % (11.7-14.2); RDW Standard Deviation 44.4 fL (35.1-46.3); Red Blood Cell Count 4.55 M/mm3 (3.80-5.20); White Blood Cell Count 7.92 K/mm3 (4.00-11.30)
[2023-05-16 10:17] LABS: Alanine Aminotransfer (ALT/SGP 18 U/L (12-78); Albumin, Blood 3.5 g/dL (3.4-5.0); Albumin/Globulin Ratio 1.1 (0.8-1.8); Alk Phos 59 U/L (50-136); Aspartate Aminotrans (AST/SGOT 24 U/L (12-37); Bilirubin, Total 0.5 mg/dL (0.1-1.0); Blood Urea Nitrogen 19 mg/dL (8-24); Bun/Creatinine Ratio 32.9 (12.0-20.0); Calcium, Blood 8.8 mg/dL (8.5-10.1); Chloride, Blood 97 mmol/L (98-108); Creatinine, Blood 0.58 mg/dL (0.40-1.00); Globulin, Blood 3.2 g/dL (2.2-4.0); Glomerular Filtration Rate 98 (60-); Glucose, Blood 116 mg/dL (70-99); Potassium, Blood 4.6 mmol/L (3.5-5.5); Sodium, Blood 141 mmol/L (136-145); Total Protein, Blood 6.7 g/dL (6.4-8.2)
[2023-05-16 10:18] LABS: Anion Gap Unable to Calculate mmol/L (6-16); CO2, Blood >45 mmol/L (21-32)
[2023-05-16 12:30] LABS: Bilirubin, Urine Neg (Neg); Blood, Urine 3+ (Neg); Color, Urine Yellow (P-Yellow); Glucose Qualitative, Urine Neg (Neg); Ketones, Urine 2+ (Neg); Leukocyte Esterase, Urine Neg (Neg); Nitrite, Urine Neg (Neg); Protein, Urine 1+ (Neg); Urobilinogen, Urine NORM (Normal)
[2023-05-16 12:48] LABS: Appearance, Urine Hazy (Clear)
[2023-05-16 12:51] LABS: Bacteria Many /hpf; Squamous Epithelial Cells Few /hpf (Few)
[2023-05-16] MEDS ORDERED: CEFP200 PO (13:14)
[2023-05-16 15:30] VITALS: BP 110/82
== END 2023-05-16 15:40 | disposition home or self-care (01) ==
LOC: ER 08:51
PROVIDERS: Emergency Medicine
DX: J44.1 Chronic obstructive pulmonary disease with (acute) exacerbation (principal); N39.0 Urinary tract infection, site not specified; Z88.0 Allergy status to penicillin; Z79.899 Other long term (current) drug therapy; I11.0 Hypertensive heart disease with heart failure; I50.9 Heart failure, unspecified; I48.91 Unspecified atrial fibrillation
CPT/HCPCS: 51701; 51798; 71045; 80053; 81001; 85025; 87086; 93005; 93010; 99285-25; J7030

== ENCOUNTER 2023-12-23 05:38 | Emergency (ER) | payer OTHER ==
[~2023-12-23] VITALS: Ht 175.3 cm; Wt 68.0 kg
[~2023-12-23 05:38] MED LIST changes: +BUDESONIDE INH; +CEFP200 PO; +PRED20 PO
[2023-12-23] MEDS ORDERED: Mag Sulfate 1 GM/D5% 100ML 100 ML IV ONE (07:10)
[2023-12-23] MEDS ORDERED: Ipratropium/Albuterol SulF 2.5-0.5MG/3 ML Amp INH ONE ×2 (07:10→12:25)
[2023-12-23 07:37] LABS: BASOPHILS ABSOLUTE AUTO 0.06 K/mm3 (0.00-0.23); BASOPHILS PERCENT AUTO 1 % (0-2); EOSINOPHILS ABSOLUTE AUTO 0.07 K/mm3 (0.00-0.68); EOSINOPHILS PERCENT AUTO 1 % (0-6); Hematocrit 42.4 % (33.0-51.0); Hemoglobin 12.9 g/dL (11.5-16.0); IMMATURE GRAN ABSOLUTE AUTO 0.01 K/mm3 (0.00-0.10); IMMATURE GRAN PERCENT AUTO 0 % (0-1); LYMPHOCYTES ABSOLUTE AUTO 0.78 K/mm3 (0.84-5.20); LYMPHOCYTES PERCENT AUTO 10 % (21-46); MONOCYTES ABSOLUTE AUTO 0.95 K/mm3 (0.16-1.47); MONOCYTES PERCENT AUTO 13 % (4-13); Mean Corpuscular HGB 30.8 pg (26.0-34.0); Mean Corpuscular HGB Conc 30.4 g/dL (31.5-36.5); Mean Corpuscular Volume 101 fL (80-100); Mean Platelet Volume 9.5 fL (9.1-12.4); NEUTROPHILS ABSOLUTE AUTO 5.66 K/mm3 (1.96-9.15); NEUTROPHILS PERCENT AUTO 75 % (41-73); Platelet Count 217 K/mm3 (150-400); RDW Coefficient Variation 12.8 % (11.7-14.2); RDW Standard Deviation 47.8 fL (35.1-46.3); Red Blood Cell Count 4.19 M/mm3 (3.80-5.20); White Blood Cell Count 7.53 K/mm3 (4.00-11.30)
[2023-12-23 07:43] LABS: Base Excess Venous 23.6 mmol/L; Bicarbonate Venous 43.9 mmol/L (24.0-30.0); PCO2 Venous 72.3 mmHg (38-42); pH Blood Venous 7.43 (7.34-7.37)
[2023-12-23 07:47] LABS: Alanine Aminotransfer (ALT/SGP 18 U/L (12-78); Albumin, Blood 3.3 g/dL (3.4-5.0); Alk Phos 61 U/L (50-136); Aspartate Aminotrans (AST/SGOT 19 U/L (12-37); Bilirubin, Total 0.3 mg/dL (0.1-1.0); Blood Urea Nitrogen 20 mg/dL (8-24); Bun/Creatinine Ratio 28.4 (12.0-20.0); Calcium, Blood 8.6 mg/dL (8.5-10.1); Chloride, Blood 96 mmol/L (98-108); Creatinine, Blood 0.71 mg/dL (0.40-1.00); Globulin, Blood 3.2 g/dL (2.2-4.0); Glomerular Filtration Rate 92 (60-); Glucose, Blood 115 mg/dL (70-99); Magnesium, Blood 2.2 mg/dL (1.6-2.4); Potassium, Blood 4.1 mmol/L (3.5-5.5); Sodium, Blood 143 mmol/L (136-145); Total Protein, Blood 6.5 g/dL (6.4-8.2)
[2023-12-23 07:53] LABS: Anion Gap Unable to Calculate mmol/L (3-11)
[2023-12-23 07:54] LABS: CO2, Blood >45 mmol/L (21-32)
[2023-12-23] MEDS ORDERED: Doxycycline Hyclate 100 MG TAB PO ONE (08:40)
[2023-12-23] MEDS ORDERED: Albuterol 2.5 MG/3 ML VIAL INH SCH ×2 (08:40→13:55)
[2023-12-23] MEDS ORDERED: PredniSONE 20 MG Tab PO ONE (08:40)
[2023-12-23] MEDS ORDERED: PRED20 PO (10:42)
[2023-12-23] MEDS ORDERED: DOXY100 PO (10:42)
[2023-12-23 13:51] VITALS: BP 116/77
== END 2023-12-23 16:18 | disposition home or self-care (01) ==
LOC: ER 05:38
PROVIDERS: Student in an Organized Health Care Education/Training Program
DX: J44.1 Chronic obstructive pulmonary disease with (acute) exacerbation (principal); J96.11 Chronic respiratory failure with hypoxia; I11.0 Hypertensive heart disease with heart failure; I50.9 Heart failure, unspecified; I48.91 Unspecified atrial fibrillation; Z99.81 Dependence on supplemental oxygen; Z88.0 Allergy status to penicillin; Z79.899 Other long term (current) drug therapy; Z79.01 Long term (current) use of anticoagulants
CPT/HCPCS: 71045; 80053; 82803; 83735; 84145; 85025; 93005; 93010; 94640; 94644; 94664; 96365; 99285-25; A9270; J3475; J7512